=== PATIENT | female | born 1935 | race Caucasian/White ===

== ENCOUNTER 2017-10-02 16:32 | Inpatient (IN) | payer MEDICARE, OTHER ==
[~2017-10-02] VITALS: Ht 142.2 cm; Wt 33.6 kg
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
--- NOTE | 2017-10-02 16:53 | NUR ---
PT REFUSED BLOOD DRAW AND WONT GIVE URINE SAMPLE. AWARE.
--- NOTE | 2017-10-02 16:58 | NUR ---
INTAKE CALLED [facility] CRISIS NURSE, ETA 1 HOUR.
[2017-10-02] MEDS ORDERED: ESCI10TA PO (17:41)
[2017-10-02] MEDS ORDERED: FAMO20TA8 PO (17:41)
[2017-10-02] MEDS ORDERED: GUAI100S11 PO (17:41)
[2017-10-02] MEDS ORDERED: DONE10TA44 PO (17:41)
[2017-10-02] MEDS ORDERED: ACET-868 PO (17:41)
[2017-10-02] MEDS ORDERED: ONDA4TAB5 PO (17:41)
[2017-10-02] MEDS ORDERED: ARIP5TAB10 PO (17:41)
[2017-10-02] MEDS ORDERED: CLON0.5T PO (17:41)
[2017-10-02] MEDS ORDERED: POTA10TA15 PO (17:41)
[2017-10-02] MEDS ORDERED: VITA1TAB20 PO (17:41)
[2017-10-02] MEDS ORDERED: CEPH-569 PO (17:41)
--- NOTE | 2017-10-02 18:50 | NUR ---
Nicolle gerber in [facility] - 10/02/17 at 1906 by ENRIQUE pt to ctscan
--- NOTE | 2017-10-02 19:06 | NUR ---
BLOOD AND URINE SAMPLE SENT TO LAB
[2017-10-02 19:09] LABS: BASOPHILS % (AUTO) 0.7 % (0.0-2.0); EOSINOPHILS % (AUTO) 1.6 % (0.0-6.0); HEMATOCRIT 39 % (33-45); HEMOGLOBIN 13.2 g/dL (11.5-14.8); LYMPHOCYTES # (AUTO) 0.8 /CMM (0.8-4.8); LYMPHOCYTES % (AUTO) 14.8 % (20.0-44.0); MEAN CORPUSCULAR HGB CONC 34 g/dl (31.0-36.0); MEAN CORPUSCULAR VOLUME 88 fL (82-100); MONOCYTES # (AUTO) 0.4 /CMM (0.1-1.30); MONOCYTES % (AUTO) 7.8 % (2.0-12.0); NEUTROPHILS # (AUTO) 4.3 /CMM (1.8-8.9); NEUTROPHILS % (AUTO) 75.1 % (43.0-81.0); PLATELET COUNT (AUTO) 232 /CMM (150-450); RDW COEFFICIENT OF VARIATION 13.9 (11.5-15.0); RED BLOOD CELL COUNT(AUTO) 4.46 MIL/uL (4.0-5.2); WHITE BLOOD COUNT (AUTO) 5.6 K/uL (4.3-11.0)
[2017-10-02 19:15] LABS: APPEARANCE,URINE Clear (CLEAR); BILIRUBIN,URINE SMALL (NEGATIVE); BLOOD, URINE Negative Ery/uL (NEGATIVE); COLOR,URINE Yellow (YELLOW); KETONES,URINE Trace (NEGATIVE); LEUKOCYTE ESTERASE ,URINE Negative (NEGATIVE); NITRITE, URINE Negative (NEGATIVE); PH,URINE 5.5 (5.0-8.0); PROTEIN,URINE 30 mg/dl (NEGATIVE); UGLUCOSE Negative (NEGATIVE); UROBILINOGEN,URINE 0.2 EU/dL (0.2)
[2017-10-02 19:19] LABS: CALCIUM, SERUM 10.3 mg/dL (8.5-10.1); CARBON DIOXIDE 28 mmol/L (21-32); CHLORIDE 107 mmol/L (98-107); CREATININE 1.6 mg/dL (0.6-1.3); GLUCOSE 119 mg/dL (74-106); POTASSIUM 3.4 mmol/L (3.5-5.1); SODIUM SERUM 146 mmol/L (136-145); UREA NITROGEN, BLOOD 16 mg/dL (7-18)
[2017-10-02 19:26] LABS: ACETAMINOPHEN 0 ug/ml (10-30); ALANINE AMINOTRANSFERASE 21 U/L (12-78); ALCOHOL, BLOOD < 3 mg/dL (0-0); ALKALINE PHOSPHATASE 60 U/L (46-116); ASPARTATE AMINOTRANSFERASE 22 U/L (15-37); BILIRUBIN,DIRECT 0.2 mg/dL (0.0-0.2); SALICYLATE 0.3 mg/dL (2.8-20.0)
[2017-10-02 19:31] LABS: BACTERIA,URINE Few /HPF (None Seen); FINE GRANULAR CASTS,URINE Few /LPF (None Seen); HYALINE CASTS, URINE Few /LPF (None Seen); MUCUS,URINE Few /LPF (None Seen); SQUAMOUS EPITHELIAL CELL,UR Few /HPF (None Seen); WBC,URINE 0-2 /HPF (0-3)
[2017-10-02 19:32] LABS: URINE AMORPHOUS URATE Moderate /HPF (None Seen)
[2017-10-02] MEDS ORDERED: LORAZEPAM 0.5 MG TABLET PO PRN (20:00)
[2017-10-02] MEDS ORDERED: TEMAZEPAM 7.5 MG CAPSULE PO PRN (20:00)
[2017-10-02] MEDS ORDERED: MAG HYDROX/AL HYDROX/SIMETH 30 ML UDC PO PRN (20:00)
[2017-10-02] MEDS ORDERED: ACETAMINOPHEN 325 MG TABLET PO PRN (20:00)
[2017-10-02] MEDS ORDERED: MAGNESIUM HYDROXIDE 30 ML UDC PO PRN (20:00)
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
--- NOTE | 2017-10-03 01:00 | NUR ---
PT NOT SLEEPING, OFFERED SLEEPING PILL TWICE, PT RESPONDED, " I DO NOT TAKE PILLS, I TOLD YOU EARLIER. "
--- NOTE | 2017-10-03 01:52 | NUR ---
CALLED AND SPOKE TO DR. TAMY ROLDAN, MEDICATIONS NEED RECONCILIATION.
[2017-10-03] MEDS ORDERED: GUAIFENESIN 300 MG/15 ML UDC PO PRN (02:00)
[2017-10-03] MEDS ORDERED: ACETAMINOPHEN 325 MG TABLET PO PRN (02:00)
[2017-10-03 08:00] VITALS: BP 121/62
[2017-10-03] MEDS: POTASSIUM CHLORIDE 10 MEQ TABLET.SA PO SCH (08:35)
[2017-10-03] MEDS: CEPHALEXIN MONOHYDRATE 250 MG CAPSULE PO SCH (08:36)
[2017-10-03] MEDS: FAMOTIDINE (20 MG) 20 MG TABLET PO SCH (08:36)
--- NOTE | 2017-10-03 09:00 | NUR ---
GPS RN NOTE: RECEIVED PT IN THE ROOM SITTING IN THE BED PT DISORGANIZED, CONFUSED , REFUSING CARE AND TX. REFUSED ALL MORNING MEDICATIONS AND SKIN ASSESSMENT, EXPLAIN PT IMPORTANCE OF MEDICATIONS COMPLIANCE. PT CONTINUE REFUSING STATED"IM NOT GOING TO TAKE MEDICATIONS SO GO".PT HARD TO REDIRECT. WILL CONTINUE MONITORING FOR SAFETY AND BEHAVIOR Q 15 MIN
[2017-10-03] MEDS: ESCITALOPRAM OXALATE (10 MG) 10 MG TABLET PO SCH (14:00)
--- NOTE | 2017-10-03 15:00 | NUR ---
Discharge Note: Patient resides Psychiatric in an assisted living facility [address] [place] [address]. ([phone]). SW spoke to patient's son Hardy Stewart ([phone]), who stated that they have been thinking that a SNF placement is more appropriate at this time. psychotherapist social worker will help form a safe and proper discharge.
[2017-10-03 16:00] VITALS: BP 90/51
--- NOTE | 2017-10-03 19:30 | NUR ---
GPS RN NOTE, RECEIVED PATIENT AWAKE AND IN BED, NO S/S OR COMPLAINTS OF PAIN AT THIS TIME. PATIENT IS DISPLAYING NO S/S OF APPARENT DISTRESS AT THIS TIME. PATIENT BREATHING IS UNLABORED WITH EQUAL RISE AND FALL OF THE CHEST. PATIENT IS ALERT AND ORIENTED X 2 ON ROOM AIR WITH A SPO2 OF 93%. PATIENT HAS BEEN REFUSING MEDICATION, ANXIOUS AT TIMES, CONFUSED, DISORGANIZED, UNCOOPERATIVE, AND NEEDS REORIENTATION. PATIENT DENIES SUICIDE IDEATIONS AND HOMICIDAL IDEATIONS AT THIS TIME. PATIENT ASSISTED WITH TURNING AND REPOSITIONING Q2HR AND PRN FOR COMFORT AND CIRCULATION. PATIENT HAS NO NEEDS AT THIS TIME. PATIENT EDUCATED ON THE USE OF THE CALL GUARDADO. PATIENT SIDE RAILS ARE UP X 2, BED IS LOCKED AND LOW, AND I WILL CONTINUE TO MONITOR THIS PATIENT Q 15 MIN WITH THE HELP OF STAFF.
[2017-10-03] MEDS: ARIPIPRAZOLE 5 MG TABLET PO SCH (21:36)
--- NOTE | 2017-10-03 21:36 | NUR ---
GPS RN NOTE, PATIENT REFUSED TO TAKE ABILIFY 2.5 MG PO HS. OFFERED ABILIFY THREE TIMES BUT STILL PATIENT REFUSED STATING, " I DON'T NEED ANY MEDICATION NOW GET OUT OF MY ROOM ". EDUCATED PATIENT ON THE RISKS AND BENEFITS OF TAKING AND REFUSING AFOREMENTIONED MEDICATION. WILL CONTINUE TO MONITOR THIS PATIENT.
[2017-10-04 08:00] VITALS: BP 131/65
[2017-10-04] MEDS: ESCITALOPRAM OXALATE (10 MG) 10 MG TABLET PO SCH (09:00)
[2017-10-04] MEDS: POTASSIUM CHLORIDE 10 MEQ TABLET.SA PO SCH (09:00)
[2017-10-04] MEDS: CEPHALEXIN MONOHYDRATE 250 MG CAPSULE PO SCH (09:00)
[2017-10-04] MEDS: FAMOTIDINE (20 MG) 20 MG TABLET PO SCH (09:00)
--- NOTE | 2017-10-04 09:40 | NUR ---
RN NOTES PATIENT SEEN IN THE BED , REFUSED TO TALK, REFUSED TAKE MEDICATION, AND REFUSED FOOD WELL. PROMPTED MEDICATION X3. EXPLAINED IMPORTANT OF TAKING MEDICATION , AND EAT. REFUSED, AND COVERED FACE WITH BLANKED. CALL GUARDADO NEAR TO REACH. CONTINUED MONITORING.
[2017-10-04] MEDS: ARIPIPRAZOLE 5 MG TABLET PO SCH (21:30)
[2017-10-05] MEDS: FAMOTIDINE (20 MG) 20 MG TABLET PO SCH (09:00)
[2017-10-05] MEDS: ESCITALOPRAM OXALATE (10 MG) 10 MG TABLET PO SCH (09:00)
[2017-10-05] MEDS: POTASSIUM CHLORIDE 10 MEQ TABLET.SA PO SCH (09:00)
[2017-10-05] MEDS: CEPHALEXIN MONOHYDRATE 250 MG CAPSULE PO SCH (09:00)
--- NOTE | 2017-10-05 11:37 | NUR ---
GPS RN NOTE; RECEIVED PT IN HER ROOM RESTING IN BED ALERT,ORIENTED X 1-2, CONFUSED, PT UNCOOPERATIVE, REFUSED MEDICATION, REFUSED VS REFUSED BREAKFAST EXPLAINED THE RISK AND BENEFITS STILL REFUSING CARE . PT REFUSED SKIN ASSESSMENT NO SOB, NO ACUTE DISTRESS, BREATHING EVEN AND UNLABORED, DENIES PAIN AND DISCOMFORT, WILL CONTINUE TO MONITOR [id number] FOR SAFETY
--- NOTE | 2017-10-05 16:42 | NUR ---
GPS RN NOTE: PT WAS SEEN AND EXAMINE BY DR CHI MD NOTIFIED OF PT REFUSING CARED AND TX, REFUSED TO EAT, NON COOPERATIVE. RIESE PETITION FILED AND FAXED TO THE COURT. WILL CONTINUE MONITORING FOR SAFETY AND BEHAVIOR Q 15 MIN
[2017-10-05] MEDS: ARIPIPRAZOLE 5 MG TABLET PO SCH (21:19)
--- NOTE | 2017-10-05 21:19 | NUR ---
RN GPS NOTES PT. REFUSED NIGHT MEDS ABILIFY 2.5 MG , ENCOURAGED FOR MEDS , EXPLINED RISKS AND BENEFITS STILL REFUSED,
--- NOTE | 2017-10-05 22:00 | NUR ---
RN GPS NOTES PT. REFUSED VITAL SIGNS, ENCOURAGED FOR VITAL SIGNS, EXPLINED RISKS AND BENEFITS STILL REFUSED,
--- NOTE | 2017-10-06 07:14 | NUR ---
RN GPS NOTES PT. REFUSED WEEKLY SKIN REASSESSMENT PICTURES, ENCOURAGED FOR SKIN REASSESSMENT, EXPLINED RISKS AND BENEFITS STILL REFUSED,
[2017-10-06 08:00] VITALS: BP 142/78
[2017-10-06] MEDS: POTASSIUM CHLORIDE 10 MEQ TABLET.SA PO SCH (09:00)
[2017-10-06] MEDS: FAMOTIDINE (20 MG) 20 MG TABLET PO SCH (09:00)
[2017-10-06] MEDS: ESCITALOPRAM OXALATE (10 MG) 10 MG TABLET PO SCH (09:00)
[2017-10-06] MEDS: CEPHALEXIN MONOHYDRATE 250 MG CAPSULE PO SCH (09:00)
--- NOTE | 2017-10-06 12:08 | NUR ---
GPS RN NOTE; PT WAS SEEN AND EXAMINE BE DR POE NOTIFIED PATIENT IN THE ROOM ISOLATIVE , NON COMPLIANT WITH TX AND CARE, PT LAB RESULT AND VS .PT REFUSING TO EAT AND DRINK ,REFUSED ALL AM MEDICATIONS, GETTING EASILY AGITATED , VERBALLY ABUSIVE ,COMBATIVE . NEW T.O. ORDER D5 NS BOLUS 1L ONCE, BOOST BID ,ORDER PLACED AND CARED OUT, WILL CONTINUE MONITORING
[2017-10-06] MEDS ORDERED: IV D5/ 0.9% NACL 1,000 ML IV ONE (12:30)
--- NOTE | 2017-10-06 13:13 | NUR ---
GPS RN NOTE: PT CONTINUE BEEN IN THE ROOM IN BED,REFUSED IV FLUIDS EXPLAIN RISK AND BENEFITS PT YELLED " GET OUT GET OUT " DR MIRELES AWARE NO NEW ORDER AT THIS TIME WILL CONTINUE MONITORING
[2017-10-06] MEDS: BOOST PLUS FOOD-VANILLA 237 ML BOX PO SCH (16:53)
--- NOTE | 2017-10-06 19:26 | NUR ---
GPS RN NOTE, RECEIVED PATIENT AWAKE AND IN BED, NO S/S OR COMPLAINTS OF PAIN AT THIS TIME. PATIENT IS DISPLAYING NO S/S OF APPARENT DISTRESS AT THIS TIME. PATIENT BREATHING IS UNLABORED WITH EQUAL RISE AND FALL OF THE CHEST. PATIENT IS ALERT AND ORIENTED X 2 ON ROOM AIR WITH A SPO2 OF 93%. PATIENT HAS BEEN REFUSING MEDICATION, ANXIOUS AT TIMES, CONFUSED, DISORGANIZED, UNCOOPERATIVE, VERBALLY ABUSIVE, AND NEEDS REORIENTATION. PATIENT DENIES SUICIDE IDEATIONS AND HOMICIDAL IDEATIONS AT THIS TIME. PATIENT ASSISTED WITH TURNING AND REPOSITIONING Q2HR AND PRN FOR COMFORT AND CIRCULATION. PATIENT HAS NO NEEDS AT THIS TIME. PATIENT EDUCATED ON THE USE OF THE CALL GUARDADO. PATIENT SIDE RAILS ARE UP X 2, BED IS LOCKED AND LOW, AND I WILL CONTINUE TO MONITOR THIS PATIENT Q 15 MIN WITH THE HELP OF STAFF.
[2017-10-06] MEDS: ARIPIPRAZOLE 5 MG TABLET PO SCH (21:46)
--- NOTE | 2017-10-06 21:46 | NUR ---
GPS RN NOTE, PATIENT REFUSED TO TAKE ABILIFY 2.5 MG PO HS. OFFERED ABILIFY THREE TIMES BUT STILL PATIENT REFUSED STATING, " I DON'T NEED ANY MEDICATION NOW GET OUT THE FUCK OUT OF MY ROOM ". EDUCATED PATIENT ON THE RISKS AND BENEFITS OF TAKING AND REFUSING AFOREMENTIONED MEDICATION. WILL CONTINUE TO MONITOR THIS PATIENT.
[2017-10-07] MEDS: POTASSIUM CHLORIDE 10 MEQ TABLET.SA PO SCH (08:05)
[2017-10-07] MEDS: CEPHALEXIN MONOHYDRATE 250 MG CAPSULE PO SCH (08:05)
[2017-10-07] MEDS: ESCITALOPRAM OXALATE (10 MG) 10 MG TABLET PO SCH (08:05)
[2017-10-07] MEDS: FAMOTIDINE (20 MG) 20 MG TABLET PO SCH (08:05)
[2017-10-07] MEDS: BOOST PLUS FOOD-VANILLA 237 ML BOX PO SCH (08:05)
[2017-10-07 11:00] LABS: EOSINOPHILS % (AUTO) 3.7 % (0.0-6.0); HEMATOCRIT 36 % (33-45); HEMOGLOBIN 12.1 g/dL (11.5-14.8); LYMPHOCYTES # (AUTO) 0.9 /CMM (0.8-4.8); LYMPHOCYTES % (AUTO) 21.6 % (20.0-44.0); MEAN CORPUSCULAR HGB CONC 33 g/dl (31.0-36.0); MEAN CORPUSCULAR VOLUME 89 fL (82-100); MONOCYTES # (AUTO) 0.5 /CMM (0.1-1.30); MONOCYTES % (AUTO) 11.7 % (2.0-12.0); NEUTROPHILS # (AUTO) 2.6 /CMM (1.8-8.9); PLATELET COUNT (AUTO) 164 /CMM (150-450); RDW COEFFICIENT OF VARIATION 14.6 (11.5-15.0); RED BLOOD CELL COUNT(AUTO) 4.03 MIL/uL (4.0-5.2); WHITE BLOOD COUNT (AUTO) 4.1 K/uL (4.3-11.0)
[2017-10-07 11:21] LABS: CALCIUM, SERUM 9.7 mg/dL (8.5-10.1); CARBON DIOXIDE 26 mmol/L (21-32); CHLORIDE 109 mmol/L (98-107); CREATININE 1.5 mg/dL (0.6-1.3); GLUCOSE 114 mg/dL (74-106); MAGNESIUM 2.1 mg/dL (1.8-2.4); PHOSPHORUS 3.1 mg/dL (2.5-4.9); POTASSIUM 4.7 mmol/L (3.5-5.1); SODIUM SERUM 147 mmol/L (136-145); UREA NITROGEN, BLOOD 21 mg/dL (7-18)
--- NOTE | 2017-10-07 14:56 | NUR ---
[id number]: NOTIFIED INTERNET DATABASE SPECIALIST HAL ABOUT LAB RESULTS: NA= 147, CHLORIDE= 109, ANION GAP= 16, BUN= 21, CREATINE= 1.5. PENDING RETURN PHONE CALL. -
--- NOTE | 2017-10-07 15:24 | NUR ---
Patient received a call from Siena from [facility] living [facility] [address] [place] [address]. ([phone]). Siena wanted an update on patient's status and stated that she would have to assess the patient if patient and patient's family wanted to return to the assisted living facility. JEET will follow-up.
--- NOTE | 2017-10-07 15:26 | NUR ---
JEET spoke to patient's son Hardy Stewart ([phone]) who wanted an update. JEET provided Hardy with an update and he seemed content with the information provided. JEET informed Hardy that she had received a call from Siena from [facility]. ([phone]). Hardy requested that social work instructor not provide the [facility] living any information regarding patient, moving forward as he stated, "I am having various issues with them." JEET will follow-up with Hardy regarding discharge planning.
[2017-10-07 15:58] VITALS: BP 150/87
--- NOTE | 2017-10-07 16:00 | NUR ---
[id number]: PT IS 82 YEARS OLD FEMALE DISCHARGE TO MEDICAL SURGICAL FLOOR IN ROOM 206 DUE TO FAILURE TO THRIVE. NON-COMPLAINT WITH MEDICATIONS, UNCOOPERATIVE WITH TREATMENT PLANS. PT DENIES SI/HI. BEHAVIOR HAS NOT IMPROVED, PSYCHIATRIC TX PLANS NOT MET, MEDICAL TX PLANS DEFERRED FOR CONTINUAL OF CARE IN MEDICAL SURGICAL FLOOR. EDUCATED PT ABOUT AFTER CARE PLAN AND COPY PROVIDED. RETURNED PERSONAL BELONGINGS TO PT. MEDICATIONS RECONCILED WITH DR. MIRELES AND SUMMER COUNSELOR HAL. PT REFUSED TO SIGN DISCHARGE PAPERWORK. PT REFUSED SKIN ASSESSMENT. GAVE REPORT TO GREGORIO. PT LEFT THE UNIT ACCOMPANIED BY STAFF.
== END 2017-10-07 16:00 | disposition short-term general hospital (02) | DRG 885 ==
LOC: ER 16:35 → GPS 18:51
PROVIDERS: ADMIT Psychiatry & Neurology Psychosomatic Medicine; ATTEND Internal Medicine
DX: F29 Unspecified psychosis not due to a substance or known physiological condition (principal); N17.0 Acute kidney failure with tubular necrosis; N18.9 Chronic kidney disease, unspecified; E87.0 Hyperosmolality and hypernatremia; F03.91 Unspecified dementia, unspecified severity, with behavioral disturbance; E46 Unspecified protein-calorie malnutrition; Z68.1 Body mass index [BMI] 19.9 or less, adult; E86.0 Dehydration; Z73.6 Limitation of activities due to disability; K21.9 Gastro-esophageal reflux disease without esophagitis; Z79.899 Other long term (current) drug therapy; F25.1 Schizoaffective disorder, depressive type
CPT/HCPCS: 36415; 80048-TC; 80076-TC; 80305; 81000-TC; 83735-TC; 84100-TC; 85025-TC; 87081-TC; A4606; G0480; J7042; Z7610

== ENCOUNTER 2017-10-07 17:24 | Inpatient (IN) | payer MEDICARE, OTHER ==
[~2017-10-07] VITALS: Ht 147.3 cm; Wt 34.0 kg
--- NOTE | 2017-10-07 16:15 | NUR ---
EAN NOTES: REFUSING SKIN ASSESSMENT, CORNEAL ASSESSMENT, AND REFUSING LUNG SOUNDS ASSESSMENT Addendum: 10/07/17 at 1839 by HO MARINELLI RN Amended: Links added.
[~2017-10-07 17:24] MED LIST: ACET-868 PO; CEPH-569 PO; DONE10TA44 PO; FAMO20TA8 PO; GUAI100S11 PO; ONDA4TAB5 PO; POTA10TA15 PO; VITA1TAB20 PO
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
--- NOTE | 2017-10-07 19:30 | NUR ---
RN NOTES: PATIENT STABLE.ENDORSED TO NEXT SHIFT
[2017-10-07] MEDS ORDERED: LORAZEPAM 0.5 MG TABLET PO PRN (20:00)
[2017-10-07] MEDS ORDERED: HYDROCODONE/APAP 5/325MG 1 EACH TABLET PO PRN (20:00)
[2017-10-07] MEDS: BOOST PLUS FOOD-CHOCLATE 237 ML BOX PO SCH (20:00)
[2017-10-07] MEDS ORDERED: MAGNESIUM HYDROXIDE 30 ML UDC PO PRN (20:00)
[2017-10-07] MEDS ORDERED: Z GUARD REMEDY 2 OZ OINT TP PRN (20:00)
[2017-10-07] MEDS ORDERED: MAG HYDROX/AL HYDROX/SIMETH 30 ML UDC PO PRN (20:00)
[2017-10-07] MEDS ORDERED: IV NS 0.9% 1,000 ML IV PRN (20:00)
[2017-10-07] MEDS ORDERED: ONDANSETRON HCL/PF 4 MG/2 ML VIAL IVP PRN (20:00)
[2017-10-07] MEDS ORDERED: ACETAMINOPHEN 325 MG TABLET PO PRN (20:00)
[2017-10-07 22:00] VITALS: BP 145/77
[2017-10-07] MEDS ORDERED: TEMAZEPAM 7.5 MG CAPSULE PO PRN (22:00)
[2017-10-07] MEDS ORDERED: ARIPIPRAZOLE 5 MG TABLET PO SCH (22:00)
--- NOTE | 2017-10-07 23:00 | NUR ---
MS RN NOTE PATIENT SCREAMING AT STAFF. CONTINUES TO REFUSE IV. REFUSING ALL PO MEDICATION. MD AWARE.
[2017-10-08] MEDS ORDERED: HALOPERIDOL LACTATE INJ 5 MG/ML VIAL IM ONE (00:30)
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
--- NOTE | 2017-10-08 01:00 | NUR ---
MS RN NOTE PATIENT SLEEPING AT THIS TIME. WILL CONTINUE TO MONITOR.
[2017-10-08] MEDS: CEPHALEXIN MONOHYDRATE 250 MG CAPSULE PO SCH ×5 (05:41→18:00)
--- NOTE | 2017-10-08 06:24 | NUR ---
MS RN NOTE PATIENT STABLE. ALL NEEDS MET AND ATTENDED TO. SLEEPING AT THIS TIME. WILL ENDORSE TO DAY SHIFT FOR KAREN.
--- NOTE | 2017-10-08 07:30 | NUR ---
RN MS NOTES PT IN BED, AWAKE, ALERT AND ORIENTED, ABLE TO WALK INSIDE THE ROOM WITH STEADY GAIT, SAFETY PRECAUTIONS OBSERVED, NO BEHAVIOR PROBLEM NOTED AT THIS TIME.
[2017-10-08 08:00] VITALS: BP 131/88
[2017-10-08] MEDS: BOOST PLUS FOOD-CHOCLATE 237 ML BOX PO SCH ×3 (08:00→17:00)
[2017-10-08] MEDS: POTASSIUM CHLORIDE 10 MEQ TABLET.SA PO SCH (09:00)
[2017-10-08] MEDS ORDERED: ESCITALOPRAM OXALATE (10 MG) 10 MG TABLET PO SCH (09:00)
[2017-10-08] MEDS: FAMOTIDINE (20 MG) 20 MG TABLET PO SCH (09:00)
--- NOTE | 2017-10-08 09:00 | NUR ---
RN MS NOTES PT REFUSED ALL MEDS, STATED "I'M NOT TAKING ANY MEDICATIONS".
[2017-10-08] MEDS ORDERED: OLANZAPINE 10 MG VIAL IM PRN (13:00)
[2017-10-08] MEDS: OLANZAPINE 2.5 MG TABLET PO SCH ×2 (13:00→21:48)
--- NOTE | 2017-10-08 14:45 | NUR ---
RN MS NOTES PT AWAKE, IN BED, NO COMPLAINT OF PAIN, OFFERED TO EAT, SAID SHE WILL EAT LATER, INITIALLY AGREED TO TAKE SCHEDULED ZYPREXA AND KEFLEX BY MOUTH, TOOK THE PILL WITH SOME WATER BUT SPIT THEM AFTER, ZYPREXA GIVEN ORDERED, TOLERATED WELL, SAFETY PRECAUTIONS OBSERVED.
[2017-10-08 16:00] VITALS: BP 138/69
--- NOTE | 2017-10-08 16:00 | NUR ---
RN MS NOTES PT SEEN BY DR. MIRELES AND BETTY DUONG, ORDERS GIVEN AND CARRIED OUT.
--- NOTE | 2017-10-08 18:16 | NUR ---
RN MS NOTES PT AWAKE, SITTING IN BED, ALERT AND ORIENTED, CALM AT THIS TIME, PT PREFERS TO HAVE HER REGULAR CLOTHING ON, REFUSED TO BE GOWNED, STILL REFUSED PM MEDS, PT EATING RIGHT NOW, ASSISTED WITH NEEDS, NO COMPLAINT OF PAIN, NOT IN DISTRESS, SAFETY PRECAUTIONS OBSERVED, SITTER AT BEDSIDE, HOURLY ROUNDING DONE, ALL NEEDS ATTENDED.
--- NOTE | 2017-10-08 18:59 | NUR ---
RN MS NOTES PT ATE 100% OF HER DINNER, TOLERATED WELL, REMAINS CALM AND COOPERATIVE.
--- NOTE | 2017-10-08 19:20 | NUR ---
MS RN NOTES RECEIVED PT IN BED, RESTING COMFORTABLY AT THIS TIME, AROUSES EASILY,A/ 0 X 2, VERBALLY RESPONSIVE. NO DISTRESS, NO SOB NOTED. RESPIRATION IS EVEN AND UNLABORED. PT REFUSED IV INSERTION , RISK AND BENEFITS EXPLAINED, PT STILL REFUSED X 3. NO C/O PAIN OR DISCOMFORT AT THIS TIME. SITTER AT BED SIDE FOR SAFETY. ALL NEEDS ATTENDED AND MET, KEPT CLEAN , DRY AND COMFORTABLE. SAFETY PRECAUTIONS OBSERVED. CALL LIGHT WITHIN REACH . WILL CONTINUE TO MONITOR.
--- NOTE | 2017-10-09 00:16 | NUR ---
REPORT GIVEN AND ENDORSED PT ACCORDINGLY TO EAN ALLISON. PT REMAINS A/O X1-2, VERBALLY RESPONSIVE. 02 SATURATION IS 98 % ON ROOM AIR. NO C/O PAIN OR DISCOMFORT. TRANSFERRED PT TO [facility], BELONGINGS SENT WITH THE PT.
--- NOTE | 2017-10-09 00:25 | NUR ---
PT REFUSED KEFLEX ATB PO, RISK AND BENEFITS EXPLAINED, PT STILL REFUSED X 3.
--- NOTE | 2017-10-09 00:30 | NUR ---
recieved from 206-2 dx failure to thrive. alert and orientated x3, aware she is in a hospital. explained to her about having an IV placed to hydrate her and she adamantly refused, she drank one sip apple juice and refused any more. explained to here the importance of need ing fluid for the body system and she said "Just put me in a garage." Report given to me was aware she is refusing IV fluid and heplock placement
--- NOTE | 2017-10-09 01:57 | NUR ---
patient awakened when forearm touched. Alert to self and "I'm in a hospital". placed apple juice to her lips and she took one sip, and refused anymore. explained to her the risks not having foluids going into her system and she commented, "put me in a garage some where", I don't want anymore to drink , and refused an IV to be started.
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
[2017-10-09] MEDS: CEPHALEXIN MONOHYDRATE 250 MG CAPSULE PO SCH ×4 (05:47→17:02)
--- NOTE | 2017-10-09 07:10 | NUR ---
MS RN NOTES RECEIVED PATIENT IN BED ALERT ORIENTED X2-3. SITTER AT BEDSIDE. NO ACUTE DISTRESS NOTED. NO SIGN DISTRESS NOTED. NO SOB NOTED. DENIED ANY PAIN. IV ACCESS PATENT AND INTACT, NO REDNESS OR SWELLING NOTED. SAFETY MEASURES IN PLACE. HEAD OF BED ELEVATED. CALL LIGHT WITHIN REACH. WILL CONTINUE MONITOR ACCORDINGLY.
[2017-10-09 08:40] LABS: BASOPHILS % (AUTO) 0.6 % (0.0-2.0); EOSINOPHILS % (AUTO) 4.6 % (0.0-6.0); HEMATOCRIT 36 % (33-45); HEMOGLOBIN 12.3 g/dL (11.5-14.8); LYMPHOCYTES # (AUTO) 0.5 /CMM (0.8-4.8); LYMPHOCYTES % (AUTO) 13.6 % (20.0-44.0); MEAN CORPUSCULAR HGB CONC 34 g/dl (31.0-36.0); MEAN CORPUSCULAR VOLUME 91 fL (82-100); MONOCYTES # (AUTO) 0.5 /CMM (0.1-1.30); MONOCYTES % (AUTO) 13.2 % (2.0-12.0); NEUTROPHILS # (AUTO) 2.6 /CMM (1.8-8.9); PLATELET COUNT (AUTO) 143 /CMM (150-450); RDW COEFFICIENT OF VARIATION 14.9 (11.5-15.0); RED BLOOD CELL COUNT(AUTO) 3.98 MIL/uL (4.0-5.2); WHITE BLOOD COUNT (AUTO) 3.8 K/uL (4.3-11.0)
[2017-10-09 08:48] LABS: CALCIUM, SERUM 8.8 mg/dL (8.5-10.1); CARBON DIOXIDE 29 mmol/L (21-32); CHLORIDE 113 mmol/L (98-107); CREATININE 1.4 mg/dL (0.6-1.3); GLUCOSE 100 mg/dL (74-106); PHOSPHORUS 3.6 mg/dL (2.5-4.9); POTASSIUM 3.5 mmol/L (3.5-5.1); SODIUM SERUM 151 mmol/L (136-145); UREA NITROGEN, BLOOD 18 mg/dL (7-18)
[2017-10-09] MEDS: BOOST PLUS FOOD-CHOCLATE 237 ML BOX PO SCH ×2 (09:43→17:02)
[2017-10-09] MEDS: FAMOTIDINE (20 MG) 20 MG TABLET PO SCH (09:48)
[2017-10-09] MEDS: POTASSIUM CHLORIDE 10 MEQ TABLET.SA PO SCH (09:48)
[2017-10-09] MEDS: OLANZAPINE 2.5 MG TABLET PO SCH ×2 (09:49→21:45)
[2017-10-09] MEDS ORDERED: OLANZAPINE 10 MG VIAL IM PRN (15:00)
[2017-10-09] MEDS: IV 1/2NS 1000 ML 1,000 ML IV PRN (16:37)
--- NOTE | 2017-10-09 19:00 | NUR ---
MS RN NOTES PATIENT IN BED ALERT ORIENTED X2-3. SITTER AT BED SIDE NO ACUTE DISTRESS NOTED. NO SIGN DISTRESS NOTED. NO SOB NOTED. DENIED ANY PAIN. IV ACCESS PATENT AND INTACT, NO REDNESS OR SWELLING NOTED.DUE MEDICATIONS GIVEN, NO ASE NOTED. NEEDS ATTENDED AND ANTICIPATED. SAFETY MEASURES IN PLACE. HEAD OF BED ELEVATED. CALL LIGHT WITHIN REACH. WILL ENDORSE TO NIGHT NURSE FOR CONTINUITY OF CARE.
--- NOTE | 2017-10-09 19:45 | NUR ---
MS RN OPENING NOTES RECEIVED PT SITTING UPRIGHT IN BED WITH SITTER AT BEDSIDE. AWAKE AND RESPONSIVE. RESPIRATIONS ARE EVEN AND UNLABORED, NOT IN ANY ACUTE DISTRESS NOTED. IV SITE INTACT, NO INFILTRATION NOTED. DRESSING KEPT CLEAN AND DRY. SAFETY MEASURES ARE IN PLACE. BED IS IN ITS LOW AND LOCKED POSITION. WILL CONTINUE TO MONITOR THROUGHOUT SHIFT FOR CONTINUITY OF CARE.
[2017-10-09 20:00] VITALS: BP 132/75
--- NOTE | 2017-10-09 20:22 | NUR ---
MS RN NOTES PT WILL BE TRANSFERRING TO MS 2. GAVE REPORT TO MERRILL MCKOY.
--- NOTE | 2017-10-09 20:35 | NUR ---
MS RN NOTES TRANSFERRED PT TO MS 2. PT IS IN STABLE CONDITION DURING TRANSFER, ACCOMPANIED BY SITTER.
[2017-10-09] MEDS: ZOLPIDEM TARTRATE 5 MG TABLET PO PRN (21:45)
[2017-10-10] MEDS: IV 1/2NS 1000 ML 1,000 ML IV PRN (05:39)
--- NOTE | 2017-10-10 06:33 | NUR ---
MS RN NOTES AWAKE & RESPONSIVE. NOT IN ANY DISTRESS. NO SOB NOTED. DENIES ANY PAIN OR DISCOMFORT AT THIS TIME. WITH IVF INFUSING WELL. AM CARE DONE. MONITORED ACCORDINGLY. WITH SITTER AT BEDSIDE. CALL LIGHT WITHIN REACH. BED IN LOWEST POSITION. SR UP X3 WITH BED ALARM ON FOR SAFETY. WILL ENDORSE TO NEXT SHIFT.
--- NOTE | 2017-10-10 07:20 | NUR ---
RN OPEN NOTES Received report from cable stretcher and tester nurse. patient is in bed, alert and oriented to self only. sitter at bedside. bed in low position, locked and two side rails are up. call light within reach for safety. no signs and symptoms of distress. will continue to assess and monitor patient
[2017-10-10 08:13] VITALS: BP 147/80
[2017-10-10] MEDS: FAMOTIDINE (20 MG) 20 MG TABLET PO SCH (08:24)
[2017-10-10] MEDS: OLANZAPINE 2.5 MG TABLET PO SCH ×2 (08:24→21:04)
[2017-10-10] MEDS: POTASSIUM CHLORIDE 10 MEQ TABLET.SA PO SCH (08:24)
[2017-10-10] MEDS: BOOST PLUS FOOD-CHOCLATE 237 ML BOX PO SCH ×2 (08:24→16:05)
[2017-10-10 13:09] LABS: HEMATOCRIT 39 % (33-45); HEMOGLOBIN 13.1 g/dL (11.5-14.8); LYMPHOCYTES # (AUTO) 0.3 /CMM (0.8-4.8); LYMPHOCYTES % (AUTO) 5.6 % (20.0-44.0); MEAN CORPUSCULAR HGB CONC 34 g/dl (31.0-36.0); MEAN CORPUSCULAR VOLUME 89 fL (82-100); MONOCYTES # (AUTO) 0.4 /CMM (0.1-1.30); MONOCYTES % (AUTO) 7.3 % (2.0-12.0); NEUTROPHILS # (AUTO) 4.6 /CMM (1.8-8.9); NEUTROPHILS % (AUTO) 86.1 % (43.0-81.0); PLATELET COUNT (AUTO) 172 /CMM (150-450); RDW COEFFICIENT OF VARIATION 14.2 (11.5-15.0); RED BLOOD CELL COUNT(AUTO) 4.37 MIL/uL (4.0-5.2); WHITE BLOOD COUNT (AUTO) 5.3 K/uL (4.3-11.0)
[2017-10-10 13:53] LABS: CALCIUM, SERUM 8.8 mg/dL (8.5-10.1); CARBON DIOXIDE 27 mmol/L (21-32); CHLORIDE 110 mmol/L (98-107); CREATININE 1.3 mg/dL (0.6-1.3); GLUCOSE 105 mg/dL (74-106); MAGNESIUM 1.6 mg/dL (1.8-2.4); PHOSPHORUS 1.6 mg/dL (2.5-4.9); SODIUM SERUM 147 mmol/L (136-145); UREA NITROGEN, BLOOD 11 mg/dL (7-18)
[2017-10-10 13:56] LABS: POTASSIUM 2.8 mmol/L (3.5-5.1)
[2017-10-10] MEDS ORDERED: POTASSIUM CHLORIDE 10 MEQ/50 ML PREMIXED IVPB FOR PERIPHERAL LINE IV ONE (14:00)
[2017-10-10] MEDS ORDERED: POTASSIUM PHOSPHATE MM 15 MMOL in IV D5W 250 ML IV SCH (14:30)
[2017-10-10] MEDS: Magnesium 1GM/D5W 100ML PREMIX 100 ML IV SCH ×4 (14:44→17:59)
[2017-10-10] MEDS ORDERED: POTASSIUM PHOSPHATE MM 5 MMOL in IV D5W 100 ML IV SCH ×2 (15:00→18:30)
[2017-10-10 16:31] VITALS: BP 120/62
--- NOTE | 2017-10-10 18:43 | NUR ---
RN CLOSING NOTES PATIENT IS IN BED, ALERT AND ORIENTED TO SELF ONLY. SITTER IS AT BEDSIDE. ALL PATIENT NEEDS ANTICIPATED AND ATTENDED FOR. BED IN LOW POSITION, LOCKED AND TWO SIDE RAILS ARE UP. CALL LIGHT WITHIN REACH FOR SAFETY. NO NEW CHANGES DURING THE SHIFT. NO SIGNS AND SYMPTOMS OF DISTRESS. WILL ENDORSE TO UNIT ASSISTANT NURSE
--- NOTE | 2017-10-10 19:30 | NUR ---
MS RN OPENING NOTES: PATIENT IN BED, AOX1-2, ON ROOM AIR, BREATHING EVEN AND UNLABORED. PATIENT APPEARS CALM BUT UNCOOPERATIVE WITH INITIAL ASSESSMENT, SAYING ONLY THAT SHE HAS THE RIGHT TO "GET OUT OF HERE" AND ALSO SAYS THAT HER SON "WILL BE HERE TO PICK HER UP SOON". PIV OVER LFA G 22 INTACT AND PATENT, INFUSING WELL WITH 1/2 NS RUNNING AT 60 ML/HR. PROVIDED FOR COMFORT AND SAFETY. BED IN LOWEST AND LOCKED POSITION, SIDERAILS UP X 3, BED ALARMS ON, SITTER AT BEDSIDE. WILL CONT TO MONITOR.
[2017-10-10 20:00] VITALS: BP 100/68
[2017-10-10] MEDS: POTASSIUM PHOSPHATE MM 5 MMOL in IV D5W 100 ML IV SCH ×2 (20:51→23:04)
[2017-10-10] MEDS ORDERED: MIRTAZAPINE 15 MG TABLET PO SCH (22:00)
[2017-10-11] MEDS: POTASSIUM PHOSPHATE MM 5 MMOL in IV D5W 100 ML IV SCH (01:14)
[2017-10-11] MEDS: IV 1/2NS 1000 ML 1,000 ML IV PRN ×2 (05:24→22:28)
--- NOTE | 2017-10-11 06:38 | NUR ---
MS RN CLOSING NOTES: PATIENT IN BED, AOX1, ON ROOM AIR, BREATHING EVEN AND UNLABORED. PATIENT STILL UNCOOPERATIVE, WAS REFUSING SNACKS AND BOOST THROUGHOUT THE SHIFT, KEPT SAYING "I WANT YOU TO LEAVE ME ALONE". ONLY ACCEPTED 75% OF 1 CARTON OF APPLE JUICE THE WHOLE NIGHT. PIV OVER LFA G 22 INTACT AND PATENT, INFUSING WELL WITH 1/2 NS RUNNING AT 60 ML/HR. PROVIDED FOR COMFORT AND SAFETY, BED IN LOWEST AND LOCKED POSITION, SIDERAILS UP X3, BED ALARMS ON. SITTER AT BEDSIDE, ON 5250 HOLD FOR GRAVE DISABILITY. WILL ENDORSE TO AM RN FOR KAREN.
[2017-10-11 07:25] LABS: BASOPHILS % (AUTO) 0.5 % (0.0-2.0); EOSINOPHILS % (AUTO) 3.9 % (0.0-6.0); HEMATOCRIT 40 % (33-45); HEMOGLOBIN 13.4 g/dL (11.5-14.8); LYMPHOCYTES # (AUTO) 0.6 /CMM (0.8-4.8); LYMPHOCYTES % (AUTO) 15.4 % (20.0-44.0); MEAN CORPUSCULAR HGB CONC 34 g/dl (31.0-36.0); MEAN CORPUSCULAR VOLUME 90 fL (82-100); MONOCYTES # (AUTO) 0.5 /CMM (0.1-1.30); MONOCYTES % (AUTO) 11.9 % (2.0-12.0); NEUTROPHILS # (AUTO) 2.8 /CMM (1.8-8.9); NEUTROPHILS % (AUTO) 68.3 % (43.0-81.0); PLATELET COUNT (AUTO) 167 /CMM (150-450); RDW COEFFICIENT OF VARIATION 14.5 (11.5-15.0); RED BLOOD CELL COUNT(AUTO) 4.39 MIL/uL (4.0-5.2); WHITE BLOOD COUNT (AUTO) 4.1 K/uL (4.3-11.0)
--- NOTE | 2017-10-11 07:30 | NUR ---
RN OPEN NOTES RECEIVED REPORT FROM WELL PULLER HEAD RN. PATIENT IS IN BED WITH HER EYES CLOSED. AROUSE TO LIGHT TOUCH AND SHOUTING HER NAME. NO SIGNS AND SYMPTOMS OF DISTRESS. BED IN LOW POSITION, LOCKED AND TWO SIDE RAILS ARE UP. CALL LIGHT WITHIN REACH FOR SAFETY. WILL CONTINUE TO MONITOR AND ASSESS PATIENT
[2017-10-11 07:44] LABS: CALCIUM, SERUM 8.2 mg/dL (8.5-10.1); CARBON DIOXIDE 29 mmol/L (21-32); CHLORIDE 110 mmol/L (98-107); CREATININE 1.2 mg/dL (0.6-1.3); GLUCOSE 91 mg/dL (74-106); MAGNESIUM 3.3 mg/dL (1.8-2.4); POTASSIUM 4.7 mmol/L (3.5-5.1); SODIUM SERUM 144 mmol/L (136-145); UREA NITROGEN, BLOOD 9 mg/dL (7-18)
[2017-10-11 08:00] VITALS: BP 119/76
--- NOTE | 2017-10-11 08:15 | NUR ---
PATIENT IS AROUSE FOR LIGHT TOUCH BUT VERY SLEEPY. VITAL SIGNS WITH ACCEPTABLE LIMIT. HOLDING MEDICATION TILL PATIENT IS MORE AWAKE TO AVOID ASPIRATION
[2017-10-11] MEDS: BOOST PLUS FOOD-CHOCLATE 237 ML BOX PO SCH ×2 (08:24→16:08)
[2017-10-11 08:50] VITALS: BP 119/73
[2017-10-11] MEDS: POTASSIUM CHLORIDE 10 MEQ TABLET.SA PO SCH (09:00)
[2017-10-11] MEDS: OLANZAPINE 2.5 MG TABLET PO SCH ×2 (09:00→21:35)
[2017-10-11] MEDS: FAMOTIDINE (20 MG) 20 MG TABLET PO SCH (09:00)
--- NOTE | 2017-10-11 09:17 | NUR ---
RE-CHECK PATIENT ALERTNESS STATE. AROUSE TO CALLING HER NAME, REFUSED BREAKFAST AT THIS TIME. WILL CONTINUE TO HOLD MEDICATION TILL PATIENT IS FULLY AWAKE. MONITORING PATIENT VITAL SIGNS. VITAL SIGNS WITHIN ACCEPTABLE LIMITS
--- NOTE | 2017-10-11 09:30 | NUR ---
AD SILVA MADE AWARE OF MAG AND PHOS LEVELS. HOLDING PO MEDS THIS AM
--- NOTE | 2017-10-11 11:26 | NUR ---
DR MIRELES IS AT BEDSIDE. ANJANA SHANE. RESUME ZYPREXA AT 5PM. PER DR MIRELES, PATIENT IS NOT CLEARED TO BE TRANSFERRED TO GPS
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
[2017-10-11 12:47] LABS: ABG BASE EXCESS -1.7 mmol/L; ABG OXYGEN SATURATION 94.9 % (92.0-98.5); ABG PCO2 35.8 mmHg (35.0-45.0); ABG PH 7.413 (7.350-7.450); ABG PO2 77.1 mmHg (75.0-100.0); AaDO2 29.8 mmHg; COHb 0.3 % (0.5-1.5); MetHb 0.5 % (0.0-1.5); O2Hb 94.1 % (94.0-97.0); SITE, ABG Left Radial; VENT MODE, BG ROOM AIR
--- NOTE | 2017-10-11 13:05 | NUR ---
PATIENT IS OFF THE FLOOR FOR CT SCAN OF THE HEAD
--- NOTE | 2017-10-11 13:20 | NUR ---
PATIENT ARRIVED BACK TO UNIT
[2017-10-11 16:00] VITALS: BP 113/72
--- NOTE | 2017-10-11 17:00 | NUR ---
PATIENT IS MORE ALERT NOW. ABLE TO TALK AND AMBULATE TO THE BSC
--- NOTE | 2017-10-11 19:08 | NUR ---
RN CLOSING NOTES PATIENT IS IN BED, AWAKE AND ALERT TO SELF ONLY. 1:1 SITTER. ALL PATIENT NEEDS ANTICIPATED AND ATTENDED FOR. BED IN LOW POSITION, LOCKED AND TWO SIDE RAILS ARE UP. CALL LIGHT WITHIN REACH FOR SAFETY. NO NEW CHANGES DURING THE SHIFT. NO SIGNS AND SYMPTOMS OF DISTRESS. WILL ENDORSE TO VAMP SEAMER NURSE
[2017-10-11 20:00] VITALS: BP 105/67
[2017-10-12] MEDS: ZOLPIDEM TARTRATE 5 MG TABLET PO PRN (01:28)
[2017-10-12 06:03] LABS: BASOPHILS % (AUTO) 0.5 % (0.0-2.0); EOSINOPHILS % (AUTO) 4.3 % (0.0-6.0); HEMATOCRIT 39 % (33-45); LYMPHOCYTES # (AUTO) 0.4 /CMM (0.8-4.8); LYMPHOCYTES % (AUTO) 11.6 % (20.0-44.0); MEAN CORPUSCULAR HGB CONC 34 g/dl (31.0-36.0); MEAN CORPUSCULAR VOLUME 89 fL (82-100); MONOCYTES # (AUTO) 0.3 /CMM (0.1-1.30); NEUTROPHILS # (AUTO) 2.9 /CMM (1.8-8.9); NEUTROPHILS % (AUTO) 74.6 % (43.0-81.0); PLATELET COUNT (AUTO) 173 /CMM (150-450); RDW COEFFICIENT OF VARIATION 15.1 (11.5-15.0); RED BLOOD CELL COUNT(AUTO) 4.35 MIL/uL (4.0-5.2); WHITE BLOOD COUNT (AUTO) 3.9 K/uL (4.3-11.0)
[2017-10-12 06:19] LABS: CALCIUM, SERUM 8.5 mg/dL (8.5-10.1); CARBON DIOXIDE 23 mmol/L (21-32); CHLORIDE 111 mmol/L (98-107); CREATININE 1.1 mg/dL (0.6-1.3); GLUCOSE 86 mg/dL (74-106); MAGNESIUM 2.3 mg/dL (1.8-2.4); PHOSPHORUS 3.6 mg/dL (2.5-4.9); POTASSIUM 3.7 mmol/L (3.5-5.1); SODIUM SERUM 144 mmol/L (136-145); UREA NITROGEN, BLOOD 7 mg/dL (7-18)
--- NOTE | 2017-10-12 06:22 | NUR ---
MS RN NOTES AWAKE & CONFUSED. NOT IN ANY DISTRESS. NO SOB NOTED. DENIES ANY PAIN OR DISCOMFORT AT THIS TIME. PT PULLED OUT HER IV-HL. PT REFUSING IV-HL TO BE REINSERTED. EXPLAINED TO PT RE IMPORTANCE OF IVF IN HER POC BUT PT STILL REFUSED. AM CARE DONE. MONITORED ACCORDINGLY. CALL LIGHT WITHIN REACH. BED IN LOWEST POSITION. SR UP X 3 WITH BED ALARM ON FOR SAFETY. WILL ENDORSE TO NEXT SHIFT.
--- NOTE | 2017-10-12 07:54 | NUR ---
RN OPEN NOTES RECEIVED REPORT FROM ANIMAL REHABILITATOR NURSE. PATIENT IS IN BED. PATIENT IS AWAKE, ALERT TO SELF ONLY. 1:1 SITTER AT BEDSIDE. NO SIGNS AND SYMPTOMS OF DISTRESS. BED IN LOW POSITION, LOCKED AND TWO SIDE RAILS ARE UP. CALL LIGHT WITHIN REACH. WILL CONTINUE TO ASSESS AND MONITOR PATIENT
[2017-10-12 08:00] VITALS: BP 105/44
[2017-10-12] MEDS: BOOST PLUS FOOD-CHOCLATE 237 ML BOX PO SCH ×2 (08:16→16:54)
[2017-10-12] MEDS: OLANZAPINE 2.5 MG TABLET PO SCH ×2 (08:16→09:00)
[2017-10-12] MEDS: POTASSIUM CHLORIDE 10 MEQ TABLET.SA PO SCH ×2 (08:16→09:00)
[2017-10-12] MEDS: FAMOTIDINE (20 MG) 20 MG TABLET PO SCH ×2 (08:16→09:00)
--- NOTE | 2017-10-12 11:37 | NUR ---
PER DR MIRELES, HOLD WILTON AND SHE WILL REVISED MEDS
--- NOTE | 2017-10-12 11:50 | NUR ---
PATIENT IS OFF THE FLOOR FOR GPS ACTIVITY PER DR MIRELES REQUEST
--- NOTE | 2017-10-12 18:07 | NUR ---
CARTON REPAIRER / TRANSFERRED TO GPS NOTES BETTY MEDICALLY CLEARED THE PATIENT. PATIENT TRANSFERRED TO GPS. REPORT AND PAPERWORK GAVE TO EAN PINEDA. FACE SHEET FAXED TO ADMITTING BY MIRIAM CESAR RN. PATIENT IS LEAVING IN A STABLE CONDITION.
[2017-10-12] MEDS ORDERED: OLANZAPINE 2.5 MG TABLET PO SCH (22:00)
== END 2017-10-12 18:10 | DRG 682 ==
LOC: MEDSG2 17:24 → MED 10-09 00:32 → MEDSG2 10-09 20:34
PROVIDERS: ADMIT Nurse Practitioner Acute Care; ATTEND Nurse Practitioner Acute Care
DX: N17.0 Acute kidney failure with tubular necrosis (principal); E43 Unspecified severe protein-calorie malnutrition; E87.0 Hyperosmolality and hypernatremia; E86.0 Dehydration; F03.90 Unspecified dementia, unspecified severity, without behavioral disturbance, psychotic disturbance, mood disturbance, and anxiety; Z68.1 Body mass index [BMI] 19.9 or less, adult; E83.39 Other disorders of phosphorus metabolism; E83.42 Hypomagnesemia; K21.9 Gastro-esophageal reflux disease without esophagitis; F29 Unspecified psychosis not due to a substance or known physiological condition; Z73.6 Limitation of activities due to disability; N18.9 Chronic kidney disease, unspecified; E87.6 Hypokalemia; R62.7 Adult failure to thrive
CPT/HCPCS: 36415; 36600; 70450-TC; 71045-TC; 80048-TC; 82962-TC; 83735-TC; 84100-TC; 85025-TC; A4606; J1630; J3475; J3490; J7030; J7042; J7060; Z7610

== ENCOUNTER 2017-10-12 18:18 | Inpatient (IN) | payer MEDICARE, OTHER ==
[~2017-10-12] VITALS: Ht 147.3 cm; Wt 35.4 kg
--- NOTE | 2017-10-12 19:50 | NUR ---
ADMITTED AN 82 Y/O FEMALE FROM MEDICAL SURGICAL. ON 5250 HOLD GD, BASED ON HOLD, PATIENT IS PSYCHOTIC, REFUSING MEDICATION, PARANOID,AGITATED AND NO PLAN OF SELF CARE. PATIENT ADMITTING DX. PSYCHOSIS AND MEDICAL DIAGNOSIS OF DEMENTIA, GERD, VASOMOTOR NEPHROPATHY, MALNUTRITION. UPON FACE TO FACE EVALUATION, PATIENT APPEARED ALERT AND ORIENTED X 2, CALM, PARANOID, NEEDY, EASILY AGITATED, DISORGANIZED, HEAD TO TOE ASSESSMENT DONE. PICTURE DONE, PATIENT REFUSED TO SIGN PAPER WORKS. AMBULATORY WITH ASSIST, NKA, NO SOB, NO ACUTE DISTRESS, BREATHING EVEN AND UNLABORED, NO S/S OF PAIN AND DISCOMFORT. PATIENT IS UNDER THE CARE OF DR. MIRELES AND JACOB. NOTIFIED DR. MIRELES OF THE ADMISSION. BELONGINGS COLLECTED FOR CONTRABAND CHECK BY THE PREVIOUS SHIFT. NOTIFIED RESPONSIBLE REPUBLICAN OF THE ADMISSION. KEPT CLEAN, DRY AND COMFORTABLE. WILL CONTINUE TO MONITOR Q15 MINS FOR SAFETY.
[2017-10-12] MEDS ORDERED: OLANZAPINE 10 MG VIAL IM PRN (20:00)
[2017-10-12] MEDS ORDERED: HYDROCODONE/APAP 5/325MG 1 EACH TABLET PO PRN (20:00)
[2017-10-12] MEDS ORDERED: ACETAMINOPHEN 325 MG TABLET PO PRN (20:00)
[2017-10-12 20:22] VITALS: BP 102/62
[2017-10-12] MEDS ORDERED: MAG HYDROX/AL HYDROX/SIMETH 30 ML UDC PO PRN (20:30)
[2017-10-12] MEDS ORDERED: MAGNESIUM HYDROXIDE 30 ML UDC PO PRN (20:30)
[2017-10-12] MEDS ORDERED: Z GUARD REMEDY 2 OZ OINT TP PRN (20:30)
[2017-10-12] MEDS ORDERED: OLANZAPINE 2.5 MG TABLET PO SCH (22:00)
[2017-10-12 22:32] VITALS: BP 102/62
[2017-10-12] MEDS: TEMAZEPAM 7.5 MG CAPSULE PO PRN (23:23)
[2017-10-13 08:00] VITALS: BP 125/52
[2017-10-13] MEDS: FAMOTIDINE (20 MG) 20 MG TABLET PO SCH (09:41)
[2017-10-13] MEDS: BOOST PLUS FOOD-CHOCLATE 237 ML BOX PO SCH ×2 (09:42→17:41)
[2017-10-13] MEDS: POTASSIUM CHLORIDE 20 MEQ TAB.PRT.SR PO SCH (09:42)
--- NOTE | 2017-10-13 13:00 | NUR ---
MS RN NOTES PATIENT FOUND ON THE FLOOR IN HER ROOM, HIDING NEXT TO HER BED. WHEN ASKED IF PATIENT FELL SHE STATES SHE LIKES JUST BEING ON TH E FLOOR. REFUSED TO CONTINUE SPEAKING TO ANY STAFF MEMBER. DENIES ANY PAIN. PATIENT EDUCATED ON SAFETY MEASURES. PATIENT ESCORTED TO ACTIVITY ROOM FOR CLOSE MONITORING. ALSO BETTY DUONG MADE AWARE NO NEW ORDERS OBTAINED. WILL CONTINUE TO MONITOR CLOSELY.
[2017-10-13 16:00] VITALS: BP 127/73
[2017-10-13] MEDS: DIVALPROEX SODIUM 125 MG TABLET.DR PO SCH (17:41)
[2017-10-13 19:59] VITALS: BP 109/78
[2017-10-13] MEDS: OLANZAPINE 2.5 MG TABLET PO SCH (21:25)
[2017-10-13] MEDS: TEMAZEPAM 7.5 MG CAPSULE PO PRN (22:11)
[2017-10-14 07:28] LABS: BASOPHILS % (AUTO) 0.8 % (0.0-2.0); EOSINOPHILS % (AUTO) 4.4 % (0.0-6.0); HEMATOCRIT 34 % (33-45); HEMOGLOBIN 11.6 g/dL (11.5-14.8); LYMPHOCYTES # (AUTO) 0.6 /CMM (0.8-4.8); LYMPHOCYTES % (AUTO) 16.4 % (20.0-44.0); MEAN CORPUSCULAR HGB CONC 34 g/dl (31.0-36.0); MEAN CORPUSCULAR VOLUME 89 fL (82-100); MONOCYTES # (AUTO) 0.4 /CMM (0.1-1.30); MONOCYTES % (AUTO) 12.6 % (2.0-12.0); NEUTROPHILS # (AUTO) 2.3 /CMM (1.8-8.9); NEUTROPHILS % (AUTO) 65.8 % (43.0-81.0); PLATELET COUNT (AUTO) 163 /CMM (150-450); RDW COEFFICIENT OF VARIATION 14.4 (11.5-15.0); RED BLOOD CELL COUNT(AUTO) 3.85 MIL/uL (4.0-5.2); WHITE BLOOD COUNT (AUTO) 3.5 K/uL (4.3-11.0)
[2017-10-14 07:30] LABS: CHOLESTEROL 169 mg/dL (<200); HDL CHOLESTEROL 67 mg/dL (40-60); LDL 90 mg/dL (0-99); TRIGLYCERIDES 133 mg/dL (30-150)
[2017-10-14 07:33] LABS: ALANINE AMINOTRANSFERASE 20 U/L (12-78); ALBUMIN 2.7 g/dL (3.4-5.0); ALKALINE PHOSPHATASE 54 U/L (46-116); ASPARTATE AMINOTRANSFERASE 20 U/L (15-37); CALCIUM, SERUM 9.1 mg/dL (8.5-10.1); CARBON DIOXIDE 27 mmol/L (21-32); CHLORIDE 110 mmol/L (98-107); CREATININE 1.5 mg/dL (0.6-1.3); GLUCOSE 95 mg/dL (74-106); POTASSIUM 3.9 mmol/L (3.5-5.1); SODIUM SERUM 147 mmol/L (136-145); UREA NITROGEN, BLOOD 15 mg/dL (7-18)
[2017-10-14 08:00] VITALS: BP 121/60
[2017-10-14] MEDS: FAMOTIDINE (20 MG) 20 MG TABLET PO SCH (09:13)
[2017-10-14] MEDS: DIVALPROEX SODIUM 125 MG TABLET.DR PO SCH ×2 (09:13→17:00)
[2017-10-14] MEDS: POTASSIUM CHLORIDE 20 MEQ TAB.PRT.SR PO SCH (09:13)
[2017-10-14] MEDS: BOOST PLUS FOOD-CHOCLATE 237 ML BOX PO SCH ×2 (09:14→18:23)
[2017-10-14] MEDS: OLANZAPINE 2.5 MG TABLET PO SCH ×2 (11:45→21:34)
[2017-10-14 16:00] VITALS: BP 100/69
[2017-10-14 20:20] VITALS: BP 114/59
[2017-10-14] MEDS: TEMAZEPAM 7.5 MG CAPSULE PO PRN (21:52)
[2017-10-15 08:00] VITALS: BP 119/71
[2017-10-15] MEDS: BOOST PLUS FOOD-CHOCLATE 237 ML BOX PO SCH ×2 (08:00→18:41)
[2017-10-15] MEDS: POTASSIUM CHLORIDE 20 MEQ TAB.PRT.SR PO SCH (09:57)
[2017-10-15] MEDS: FAMOTIDINE (20 MG) 20 MG TABLET PO SCH (09:57)
[2017-10-15] MEDS: DIVALPROEX SODIUM 125 MG TABLET.DR PO SCH ×2 (09:58→17:00)
[2017-10-15] MEDS: OLANZAPINE 2.5 MG TABLET PO SCH ×2 (09:59→21:24)
--- NOTE | 2017-10-15 10:33 | NUR ---
I have reviewed this patients psychosocial dated 10/03/17 and I can attest to the accuracy of the information therein. There have been no changes since her last assessment. Pt. still appears oriented x4. Patient's mood and affect are irritable. Pt's. insight and judgement are poor. Pt. denies visual/ auditory hallucinations. Pt. denies suicidal/homicidal ideations. Patient contact is her son Hardy Stewart ([phone]).
--- NOTE | 2017-10-15 10:40 | NUR ---
Initial discharge Note: Patient was residing at [facility] in an assissted living facility [address] [place] [address]. ([phone]). Patients son, Hardy Stewart ([phone]), had previously stated that he has been thinking that a SNF placement is more appropriate at this time. youth support worker will help form a safe and proper discharge.
[2017-10-15 16:00] VITALS: BP 111/62
[2017-10-15 20:00] VITALS: BP 116/86
[2017-10-15] MEDS: TEMAZEPAM 7.5 MG CAPSULE PO PRN (21:49)
[2017-10-16] MEDS: LORAZEPAM 0.5 MG TABLET PO PRN (01:41)
--- NOTE | 2017-10-16 01:41 | NUR ---
GPS RN NOTES: PATIENT IS VERY ANXIOUS AND RESTLESS. GIVEN ATIVAN 0.5MG PO ORDERED BUT SHE REFUSED TO TAKE IT. WILL CONTINUE TO MONITOR [id number] FOR SAFETY AND BEHAVIOR.
[2017-10-16] MEDS: BOOST PLUS FOOD-CHOCLATE 237 ML BOX PO SCH ×2 (08:00→18:37)
[2017-10-16] MEDS: FAMOTIDINE (20 MG) 20 MG TABLET PO SCH (08:16)
[2017-10-16] MEDS: DIVALPROEX SODIUM 125 MG TABLET.DR PO SCH ×2 (08:16→18:01)
[2017-10-16] MEDS: POTASSIUM CHLORIDE 20 MEQ TAB.PRT.SR PO SCH (08:16)
[2017-10-16] MEDS: OLANZAPINE 2.5 MG TABLET PO SCH ×2 (08:16→21:17)
[2017-10-16 08:30] VITALS: BP 123/70
--- NOTE | 2017-10-16 13:54 | NUR ---
JEET faxed inquiry to [facility] (fax: [phone]/ ) [address] [place] [address]. JEET will follow-up.
[2017-10-16 17:01] VITALS: BP 114/79
--- NOTE | 2017-10-16 19:30 | NUR ---
RN NOTES RECEIVED PT AWAKE, VERBALLY RESPONSIVE, DENIES ANY PAIN OR DISCOMFORT. ATTENDED ALL NEEDS. WILL CONTINUE TO MONITOR ACCORDINGLY.
[2017-10-16 20:00] VITALS: BP_SYST 128; BP_SYST 98; BP_DIAS 80; BP_DIAS 88
[2017-10-17 08:00] VITALS: BP 119/52
[2017-10-17] MEDS: BOOST PLUS FOOD-CHOCLATE 237 ML BOX PO SCH ×2 (08:00→16:53)
[2017-10-17] MEDS: OLANZAPINE 2.5 MG TABLET PO SCH ×2 (09:00→22:13)
[2017-10-17] MEDS: FAMOTIDINE (20 MG) 20 MG TABLET PO SCH (09:00)
[2017-10-17] MEDS: POTASSIUM CHLORIDE 20 MEQ TAB.PRT.SR PO SCH (09:00)
[2017-10-17] MEDS: DIVALPROEX SODIUM 125 MG TABLET.DR PO SCH ×2 (09:00→16:53)
--- NOTE | 2017-10-17 11:26 | NUR ---
Discharge Planning: JETE received confirmation from Gonzalo from [facility] (fax: [phone]/ ) [address] [facility] [place] [address], informing that pt was not accepted to facility due to "not having any beds available." JEET faxed inquiry (H&P, P&P, psychiatric notes, med list and face sheet) to [facility]; [phone] for placement purposes on this date. JEET will follow up.
[2017-10-17] MEDS: OLANZAPINE 10 MG VIAL IM PRN (11:34)
[2017-10-17 16:00] VITALS: BP 118/59
[2017-10-17 20:00] VITALS: BP 136/74
[2017-10-18 08:00] VITALS: BP 119/76
[2017-10-18] MEDS: BOOST PLUS FOOD-CHOCLATE 237 ML BOX PO SCH ×2 (08:00→16:26)
[2017-10-18] MEDS: DIVALPROEX SODIUM 125 MG TABLET.DR PO SCH ×2 (08:10→16:26)
[2017-10-18] MEDS: POTASSIUM CHLORIDE 20 MEQ TAB.PRT.SR PO SCH (08:10)
[2017-10-18] MEDS: FAMOTIDINE (20 MG) 20 MG TABLET PO SCH (08:10)
[2017-10-18] MEDS: OLANZAPINE 2.5 MG TABLET PO SCH ×2 (09:00→21:26)
--- NOTE | 2017-10-18 09:55 | NUR ---
PATIENT REFUSED ZYPREXA 2.5MG TAB. ADMINISTERED ZYPREXA IM.
[2017-10-18] MEDS: OLANZAPINE 10 MG VIAL IM PRN (09:57)
[2017-10-18 16:00] VITALS: BP 126/70
[2017-10-18 20:00] VITALS: BP 128/80
[2017-10-18] MEDS: TEMAZEPAM 7.5 MG CAPSULE PO PRN (21:28)
[2017-10-19 08:21] VITALS: BP 107/59
[2017-10-19] MEDS: FAMOTIDINE (20 MG) 20 MG TABLET PO SCH (09:00)
[2017-10-19] MEDS: DIVALPROEX SODIUM 125 MG TABLET.DR PO SCH ×2 (09:00→17:00)
[2017-10-19] MEDS: OLANZAPINE 2.5 MG TABLET PO SCH ×3 (09:00→22:00)
[2017-10-19] MEDS: POTASSIUM CHLORIDE 20 MEQ TAB.PRT.SR PO SCH (09:00)
[2017-10-19] MEDS: BOOST PLUS FOOD-CHOCLATE 237 ML BOX PO SCH ×2 (09:10→17:00)
[2017-10-19 16:00] VITALS: BP 134/76
[2017-10-19 19:49] VITALS: BP 126/67
[2017-10-19] MEDS: TEMAZEPAM 7.5 MG CAPSULE PO PRN (21:31)
--- NOTE | 2017-10-19 22:57 | NUR ---
GPS RN NOTE: PATIENT REFUSED PICTURES AND ZYPREXA HS DOSE, EXPLAINED THE RISK AND BENEFIT, ATTEMPTED X 3, PATIENT STILL REFUSED. NOTIFIED CN.
[2017-10-20 08:00] VITALS: BP 109/58
[2017-10-20] MEDS: BOOST PLUS FOOD-CHOCLATE 237 ML BOX PO SCH ×2 (08:00→17:00)
[2017-10-20] MEDS: DIVALPROEX SODIUM 125 MG TABLET.DR PO SCH ×3 (08:49→17:19)
[2017-10-20] MEDS: POTASSIUM CHLORIDE 20 MEQ TAB.PRT.SR PO SCH (08:49)
[2017-10-20] MEDS: OLANZAPINE 2.5 MG TABLET PO SCH ×3 (08:49→17:19)
[2017-10-20] MEDS: FAMOTIDINE (20 MG) 20 MG TABLET PO SCH (08:49)
[2017-10-20] MEDS ORDERED: OLANZAPINE 10 MG VIAL IM ONE (11:30)
--- NOTE | 2017-10-20 11:49 | NUR ---
RN NOTE: PATIENT REFUSED MORNING MEDS. PATIENT BECAME AGITATED AND STRUCK OUT AT THE SITTER. IRMA CALLED AND ORDERED ZYPREXA 5MG IM. GIVEN.
[2017-10-20 15:59] VITALS: BP 107/60
--- NOTE | 2017-10-20 19:30 | NUR ---
GPS RN NOTE, RECEIVED PATIENT AWAKE AND IN BED, PATIENT HAS NO COMPLAINTS OR S/S OF PAIN AT THIS TIME. PATIENT IS DISPLAYING NO S/S OF APPARENT DISTRESS AT THIS TIME. PATIENT BREATHING IS UNLABORED WITH EQUAL RISE AND FALL OF THE CHEST. PATIENT IS ALERT AND ORIENTED X 1 ON ROOM AIR WITH A SPO2 OF 93%. PATIENT HAS A ONE TO ONE SITTER FOR BEING A HIGH FALL RISK. PATIENT IS SELECTIVE WITH MEDICATION, ANXIOUS AT TIMES, CONFUSED, PARANOID, COOPERATIVE, AND NEEDS REORIENTATION. PATIENT DENIES SUICIDE IDEATIONS AND HOMICIDAL IDEATIONS AT THIS TIME. PATIENT ASSISTED WITH TURNING AND REPOSITIONING Q2HR AND PRN FOR COMFORT AND CIRCULATION. PATIENT HAS NO NEEDS AT THIS TIME. PATIENT EDUCATED ON THE USE OF THE CALL GUARDADO. PATIENT SIDE RAILS ARE UP X 2, BED IS LOCKED AND LOW, AND I WILL CONTINUE TO MONITOR THIS PATIENT Q 15 MIN WITH THE HELP OF STAFF.
[2017-10-20 19:51] VITALS: BP 114/73
[2017-10-21 08:00] VITALS: BP 107/52
[2017-10-21] MEDS: BOOST PLUS FOOD-CHOCLATE 237 ML BOX PO SCH ×2 (08:00→16:53)
[2017-10-21] MEDS: POTASSIUM CHLORIDE 20 MEQ TAB.PRT.SR PO SCH (09:00)
[2017-10-21] MEDS: OLANZAPINE 2.5 MG TABLET PO SCH ×2 (09:00→16:52)
[2017-10-21] MEDS: FAMOTIDINE (20 MG) 20 MG TABLET PO SCH (09:00)
[2017-10-21] MEDS: DIVALPROEX SODIUM 125 MG TABLET.DR PO SCH ×2 (09:00→16:52)
[2017-10-21] MEDS ORDERED: HALOPERIDOL LACTATE INJ 5 MG/ML VIAL IM PRN (15:30)
[2017-10-21 16:00] VITALS: BP 129/55
[2017-10-21 20:04] VITALS: BP 113/69
[2017-10-21] MEDS: HALOPERIDOL 5 MG TABLET PO SCH (21:18)
[2017-10-21] MEDS: LORAZEPAM 0.5 MG TABLET PO PRN (22:42)
[2017-10-22] MEDS: BOOST PLUS FOOD-CHOCLATE 237 ML BOX PO SCH ×2 (08:00→17:00)
[2017-10-22 09:12] VITALS: BP 114/64
[2017-10-22 09:49] LABS: BASOPHILS % (AUTO) 0.3 % (0.0-2.0); EOSINOPHILS % (AUTO) 4.8 % (0.0-6.0); HEMATOCRIT 29 % (33-45); HEMOGLOBIN 9.9 g/dL (11.5-14.8); LYMPHOCYTES # (AUTO) 0.5 /CMM (0.8-4.8); LYMPHOCYTES % (AUTO) 16.3 % (20.0-44.0); MEAN CORPUSCULAR HGB CONC 34 g/dl (31.0-36.0); MEAN CORPUSCULAR VOLUME 88 fL (82-100); MONOCYTES # (AUTO) 0.4 /CMM (0.1-1.30); NEUTROPHILS # (AUTO) 1.9 /CMM (1.8-8.9); NEUTROPHILS % (AUTO) 65.6 % (43.0-81.0); PLATELET COUNT (AUTO) 169 /CMM (150-450); RDW COEFFICIENT OF VARIATION 14.6 (11.5-15.0); RED BLOOD CELL COUNT(AUTO) 3.31 MIL/uL (4.0-5.2); WHITE BLOOD COUNT (AUTO) 2.8 K/uL (4.3-11.0)
[2017-10-22 10:07] LABS: CALCIUM, SERUM 8.8 mg/dL (8.5-10.1); CARBON DIOXIDE 29 mmol/L (21-32); CHLORIDE 113 mmol/L (98-107); CREATININE 1.4 mg/dL (0.6-1.3); GLUCOSE 78 mg/dL (74-106); PHOSPHORUS 2.7 mg/dL (2.5-4.9); POTASSIUM 3.9 mmol/L (3.5-5.1); SODIUM SERUM 148 mmol/L (136-145); UREA NITROGEN, BLOOD 27 mg/dL (7-18)
[2017-10-22] MEDS: DIVALPROEX SODIUM 125 MG TABLET.DR PO SCH ×2 (12:11→17:15)
[2017-10-22] MEDS: OLANZAPINE 2.5 MG TABLET PO SCH (12:11)
[2017-10-22] MEDS: FAMOTIDINE (20 MG) 20 MG TABLET PO SCH (12:11)
[2017-10-22] MEDS: POTASSIUM CHLORIDE 20 MEQ TAB.PRT.SR PO SCH (12:11)
[2017-10-22 12:57] LABS: BAND % (MANUAL) 1 % (0.0-5.0); EOSINOPHILS % (MANUAL) 1 % (0-4); LYMPHOCYTES % (MANUAL) 21 % (16-48); MONOCYTES % (MANUAL) 11 % (0-11.0); NEUTROPHILS % (MANUAL) 66 (42-76)
[2017-10-22 16:00] VITALS: BP 120/75
[2017-10-22] MEDS ORDERED: LORAZEPAM 1 MG TABLET PO PRN (19:54)
[2017-10-22 20:07] VITALS: BP 126/70
[2017-10-22] MEDS: HALOPERIDOL 5 MG TABLET PO SCH (21:11)
[2017-10-23] MEDS: FAMOTIDINE (20 MG) 20 MG TABLET PO SCH (08:26)
[2017-10-23] MEDS: POTASSIUM CHLORIDE 20 MEQ TAB.PRT.SR PO SCH (08:26)
[2017-10-23] MEDS: DIVALPROEX SODIUM 125 MG TABLET.DR PO SCH ×2 (08:26→17:15)
[2017-10-23] MEDS: BOOST PLUS FOOD-CHOCLATE 237 ML BOX PO SCH ×2 (08:52→17:15)
[2017-10-23 09:12] VITALS: BP 105/55
[2017-10-23 16:00] VITALS: BP 123/63
[2017-10-23 20:00] VITALS: BP 117/79
[2017-10-23] MEDS: HALOPERIDOL 5 MG TABLET PO SCH (21:27)
[2017-10-24 08:00] VITALS: BP 138/75
[2017-10-24] MEDS: POTASSIUM CHLORIDE 20 MEQ TAB.PRT.SR PO SCH (08:09)
[2017-10-24] MEDS: DIVALPROEX SODIUM 125 MG TABLET.DR PO SCH ×2 (08:09→17:03)
[2017-10-24] MEDS: FAMOTIDINE (20 MG) 20 MG TABLET PO SCH (08:09)
[2017-10-24] MEDS: BOOST PLUS FOOD-CHOCLATE 237 ML BOX PO SCH ×2 (09:18→17:03)
[2017-10-24 16:02] VITALS: BP 133/73
[2017-10-24 20:00] VITALS: BP 131/76
[2017-10-24] MEDS: HALOPERIDOL 5 MG TABLET PO SCH (21:18)
[2017-10-24] MEDS: TEMAZEPAM 7.5 MG CAPSULE PO PRN (21:18)
--- NOTE | 2017-10-24 21:21 | NUR ---
TEMAZEPAM 7.5 MG CAP 1 PO GIVEN.
--- NOTE | 2017-10-25 07:05 | NUR ---
GPS/RN NOTE PATIENT IN BED AWAKE 1:1 SITTER PRESENT. DENIES SOB, PAIN. RESPIRATION REGULAR AND UNLABORED. PATIENT IN NO APPARENT DISTRESS. DENIES SI, DENIES HI. WILL CONTINUE TO MONITOR.
[2017-10-25 08:30] VITALS: BP 145/69
[2017-10-25] MEDS: BOOST PLUS FOOD-CHOCLATE 237 ML BOX PO SCH ×2 (08:53→17:00)
[2017-10-25] MEDS: POTASSIUM CHLORIDE 20 MEQ TAB.PRT.SR PO SCH (09:24)
[2017-10-25] MEDS: DIVALPROEX SODIUM 125 MG TABLET.DR PO SCH ×2 (09:24→17:15)
[2017-10-25] MEDS: FAMOTIDINE (20 MG) 20 MG TABLET PO SCH (09:24)
[2017-10-25 16:00] VITALS: BP 146/96
--- NOTE | 2017-10-25 17:36 | NUR ---
GPS/RN NOTE PATIENT ALERT AND ORIENTED TO PERSON, PLACE AND SITUATION WITH EPISODES OF FORGETFULNESS AND CONFUSION. REDIRECTION AND REORIENTATION PROVIDED NEEDED. DENIES SOB. RESPIRATION REGULAR AND UNLABORED. DENIES PAIN AT THIS TIME. PATIENT WITH 1:1 SITTER DURING THE SHIFT. DENIES SI, DENIES HI. PATIENT HAVING DINNER AT THIS TIME. PATIENT COOPERATIVE. 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
[2017-10-25 18:41] VITALS: BP 133/76
[2017-10-25 20:00] VITALS: BP 123/71
[2017-10-25] MEDS: HALOPERIDOL 5 MG TABLET PO SCH (21:01)
[2017-10-26] MEDS: TEMAZEPAM 7.5 MG CAPSULE PO PRN
--- NOTE | 2017-10-26 00:01 | NUR ---
Temazepam 7.5 mg cap 1 po given for sleep, per patient's request
--- NOTE | 2017-10-26 01:56 | NUR ---
PATIENT SLEPT ON AND OFF
[2017-10-26 08:00] VITALS: BP 133/79
[2017-10-26] MEDS: BOOST PLUS FOOD-CHOCLATE 237 ML BOX PO SCH ×2 (08:03→16:04)
[2017-10-26] MEDS: FAMOTIDINE (20 MG) 20 MG TABLET PO SCH (08:03)
[2017-10-26] MEDS: DIVALPROEX SODIUM 125 MG TABLET.DR PO SCH ×2 (08:03→16:04)
[2017-10-26] MEDS: POTASSIUM CHLORIDE 20 MEQ TAB.PRT.SR PO SCH (08:05)
[2017-10-26 16:00] VITALS: BP 139/86
[2017-10-26 20:47] VITALS: BP 139/76
[2017-10-26] MEDS: HALOPERIDOL 5 MG TABLET PO SCH (21:29)
[2017-10-27 08:13] VITALS: BP 100/56
[2017-10-27] MEDS: FAMOTIDINE (20 MG) 20 MG TABLET PO SCH (09:30)
[2017-10-27] MEDS: POTASSIUM CHLORIDE 20 MEQ TAB.PRT.SR PO SCH (09:30)
[2017-10-27] MEDS: BOOST PLUS FOOD-CHOCLATE 237 ML BOX PO SCH (09:30)
[2017-10-27] MEDS: DIVALPROEX SODIUM 125 MG TABLET.DR PO SCH (09:30)
[2017-10-27 16:23] VITALS: BP 117/66
--- NOTE | 2017-10-27 17:00 | NUR ---
HEALTH SCIENCES MANAGER NOTES PT. LEFT IN MEDICALLY STABLE CONDITION WITH AN AMBULANCE CREW TO [facility]. REPORT WAS GIVEN TO KIA VIA PHONE AT [facility]. DISCHARGE PACKET WAS SIGNED WITH ANOTHER NURSE AND COPY WAS PLACED IN PACKET. BELONGINGS LIST WAS CHECKED, AND SIGNED. REPORT WAS GIVEN TO AMBULANCE BEFORE PT. LEFT UNIT.
== END 2017-10-27 17:00 | DRG 885 ==
LOC: GPS 18:18
PROVIDERS: ADMIT Psychiatry & Neurology Psychosomatic Medicine; ATTEND Nurse Practitioner Acute Care
DX: F29 Unspecified psychosis not due to a substance or known physiological condition (principal); F02.80 Dementia in other diseases classified elsewhere, unspecified severity, without behavioral disturbance, psychotic disturbance, mood disturbance, and anxiety; E43 Unspecified severe protein-calorie malnutrition; N17.0 Acute kidney failure with tubular necrosis; E87.0 Hyperosmolality and hypernatremia; G30.9 Alzheimer's disease, unspecified; E86.0 Dehydration; E46 Unspecified protein-calorie malnutrition; R62.7 Adult failure to thrive; E87.6 Hypokalemia; F20.9 Schizophrenia, unspecified; Z91.19 Patient's noncompliance with other medical treatment and regimen
CPT/HCPCS: 36415; 80048-TC; 80053-TC; 80061-TC; 83735-TC; 84100-TC; 85025-TC; J3490